=== PATIENT | male | born 1955 | race Caucasian/White ===

== ENCOUNTER 2018-09-05 08:25 | Emergency (ER) | payer MEDICAID, MEDICARE ==
[~2018-09-05] VITALS: Ht 182.9 cm; Wt 89.5 kg
[~2018-09-05 08:25] MED LIST: ONDA4TAB6 PO; PRED20TA PO
--- NOTE | 2018-09-05 10:27 | NUR ---
reported off to Silverio WEISS, taking over
[2018-09-05 11:17] VITALS: BP 142/86
== END 2018-09-05 11:34 | disposition home or self-care (01) ==
LOC: ER 08:26
DX: E11.649 Type 2 diabetes mellitus with hypoglycemia without coma (principal); J44.9 Chronic obstructive pulmonary disease, unspecified; Z79.899 Other long term (current) drug therapy
CPT/HCPCS: 82948; 99284

== ENCOUNTER 2019-04-13 09:45 | Emergency (ER) | payer MEDICARE, MEDICAID ==
[~2019-04-13] VITALS: Ht 182.9 cm; Wt 88.0 kg
[2019-04-13 10:01] VITALS: BP 166/70
--- NOTE | 2019-04-13 10:14 | NUR ---
PT STATES HE HASX HAD A COUPH
[2019-04-13] MEDS ORDERED: LIDOcaine 5% patch TP ONE (10:30)
[2019-04-13] MEDS ORDERED: HYDR-4383 PO (10:31)
== END 2019-04-13 11:45 | disposition home or self-care (01) ==
LOC: ER 09:46
DX: S22.009A Unspecified fracture of unspecified thoracic vertebra, initial encounter for closed fracture (principal); J44.9 Chronic obstructive pulmonary disease, unspecified; E11.9 Type 2 diabetes mellitus without complications; G89.29 Other chronic pain; Z79.899 Other long term (current) drug therapy; X50.1XXA Overexertion from prolonged static or awkward postures, initial encounter; Y93.89 Activity, other specified; Y92.89 Other specified places as the place of occurrence of the external cause; Y99.9 Unspecified external cause status
CPT/HCPCS: 72070; 99284

== ENCOUNTER 2019-04-19 10:36 | Emergency (ER) | payer MEDICARE, OTHER ==
[~2019-04-19] VITALS: Ht 182.9 cm; Wt 84.8 kg
[~2019-04-19 10:36] MED LIST changes: +HYDR-4383 PO
[2019-04-19] MEDS ORDERED: ipratropium/albuterol 3ml nebule NEB ONE (13:30)
[2019-04-19] MEDS ORDERED: benzonatate 100mg capsule PO ONE (13:30)
[2019-04-19] MEDS ORDERED: HYDR-3965 PO (14:29)
[2019-04-19] MEDS ORDERED: BENZ-16 PO (14:29)
[2019-04-19 15:01] VITALS: BP 183/91
== END 2019-04-19 15:03 | disposition home or self-care (01) ==
LOC: ER 10:38
DX: R05 Cough (principal); R06.00 Dyspnea, unspecified; I50.9 Heart failure, unspecified; J44.9 Chronic obstructive pulmonary disease, unspecified; E11.9 Type 2 diabetes mellitus without complications; G89.29 Other chronic pain; F17.200 Nicotine dependence, unspecified, uncomplicated; Z79.899 Other long term (current) drug therapy
CPT/HCPCS: 71046; 93005; 94640; 94760; 99283

== ENCOUNTER 2019-05-07 18:54 | Emergency (ER) | payer MEDICARE, OTHER ==
[~2019-05-07] VITALS: Ht 182.9 cm; Wt 85.0 kg
[~2019-05-07 18:54] MED LIST changes: +BENZ-16 PO; +HYDR-3965 PO
[2019-05-07] MEDS ORDERED: normal saline 1000ML IV soln IVB ONE (20:00)
[2019-05-07 20:32] LABS: BASOPHILS # (AUTO) 0.1 X10'3 (0-0.2); BASOPHILS % (AUTO) 0.6 % (0-1); EOSINOPHILS # (AUTO) 0.1 X10'3 (0-0.9); EOSINOPHILS % (AUTO) 1.2 % (0-6); HEMATOCRIT 35.1 % (42.0-52.0); HEMOGLOBIN 11.9 g/dl (14.0-17.9); LYMPHOCYTES # (AUTO) 1.2 X10'3 (1.1-4.8); MEAN CORPUSCULAR HEMOGLOBIN 29.8 PG (27.0-31.0); MEAN CORPUSCULAR VOLUME 87.8 FL (78-98); MEAN PLATELET VOLUME 8.9 FL (7.4-10.4); MONOCYTES # (AUTO) 0.6 X10'3 (0-0.9); NEUTROPHILS # (AUTO) 9.6 X10'3 (1.8-7.7); NEUTROPHILS % (AUTO) 83.2 % (42-75); PLATELET COUNT 230 X10'3 (140-440); RED CELL DISTRIBUTION WIDTH 15.6 % (11.5-14.5); WHITE BLOOD COUNT 11.6 X10'3 (4.5-11.0)
[2019-05-07 20:56] LABS: ALANINE AMINOTRANSFERASE 21 U/L (12-78); ALBUMIN 3.6 G/DL (3.4-5.0); ALBUMIN/GLOBULIN RATIO 1.1 (1.1-1.5); ALKALINE PHOSPHATASE 102 IU/L (46-116); ANION GAP 10 (8-16); ASPARTATE AMINO TRANSFERASE 24 U/L (10-37); BILIRUBIN,TOTAL 0.3 MG/DL (0.1-1.0); BLOOD UREA NITROGEN 62 MG/DL (7-18); BUN/CREATININE RATIO 17.9 (5.4-32.0); CALCIUM 8.9 MG/DL (8.5-10.1); CHLORIDE 110 MMOL/L (99-107); CREATININE 3.47 MG/DL (0.60-1.10); GLUCOSE 76 MG/DL (70-104); LIPASE 121 U/L (73-393); POTASSIUM 4.8 MMOL/L (3.5-5.1); SODIUM 144 MMOL/L (135-145); TOTAL PROTEIN 6.8 G/DL (6.4-8.2); eGFR 18 ML/MIN
--- NOTE | 2019-05-07 21:09 | NUR ---
PT GIVEN SANDWICH, JELLO, AND STRING CHEESE PER ORLIN ARROYO ORDERS
[2019-05-07] MEDS ORDERED: ipratropium/albuterol 3ml nebule NEB ONE (22:00)
[2019-05-07] MEDS ORDERED: dexamethasone sod phosphate 10mg/ml inj IV STA (22:23)
[2019-05-07 22:46] LABS: ABG BASE EXCESS -5.7 mmol/L (-2.0-3.0); ABG HCO3 19.6 mmol/L (22.0-26.0); ABG PCO2 (T) 33.8 mmHg (35.0-45.0); ABG PH (T) 7.369 (7.350-7.450); ABG PO2 (T) 61.5 mmHg (83-108); ALLEN'S TEST POSITIVE; FCOHb 1.8 % (0.5-1.5); FO2Hb 92.3 % (94-100); PATIENT TEMPERATURE 34.4; TOTAL HEMOGLOBIN 12.4 G/dl (14.0-17.9)
[2019-05-08] MEDS ORDERED: ACET-38 PO (00:16)
[2019-05-08] MEDS ORDERED: DOXY100C43 PO (00:16)
[2019-05-08 00:22] VITALS: BP 154/82
== END 2019-05-08 00:24 | disposition home or self-care (01) ==
LOC: ER 18:54
DX: E11.649 Type 2 diabetes mellitus with hypoglycemia without coma (principal); R05 Cough; J44.9 Chronic obstructive pulmonary disease, unspecified; I50.9 Heart failure, unspecified; G89.29 Other chronic pain; F17.200 Nicotine dependence, unspecified, uncomplicated; Z79.899 Other long term (current) drug therapy
CPT/HCPCS: 36415; 36600; 71045; 74176; 80053; 82803; 82948; 83605; 83690; 84484; 85018; 85025; 87040; 93005; 94640; 96361; 96374; 99285; J1100; J7030; 94760

== ENCOUNTER 2020-05-25 08:00 | Emergency (ER) | payer MEDICARE, OTHER ==
[~2020-05-25] VITALS: Ht 182.9 cm; Wt 81.8 kg
[~2020-05-25 08:00] MED LIST changes: +ALBU90AE IH; +ALEN70TA60 PO; +ASPI-1265 PO; -BENZ-16 PO; +DILT-103 PO; +FOLI0.8T22 PO; +FURO40TA4 PO; -HYDR-3965 PO; -HYDR-4383 PO; +INSU100I29 SQ; +LABE300T2 PO; +LEVO200T8 PO; -ONDA4TAB6 PO; +SEVE800T8 PO; +SIMV10TA98 PO; +tamsulosin capsule PO
[2020-05-25 08:07] VITALS: BP 155/73
[2020-05-25] MEDS ORDERED: LIDOcaine 2% 10ml TOPICAL JELLY (Urojet) TP ONE (08:20)
[2020-05-25 08:51] LABS: CLARITY,URINE CLOUDY (Clear); COLOR,URINE YELLOW (Yellow); GLUCOSE, URINE 500 mg/dl (Neg); KETONES,URINE NEGATIVE (Neg); LEUKOCYTE ESTERASE ,URINE MODERATE (Neg); NITRITES, URINE NEGATIVE (Neg); OCCULT BLOOD,URINE MODERATE (Neg); PROTEIN,URINE 100 mg/dl (Neg); UROBILINOGEN,URINE 0.2 E.U/dL (0.2-1.0)
[2020-05-25 08:52] LABS: UA COLLECTION TYPE NON-SPECIFIED
[2020-05-25 09:04] LABS: WBC,URINE TNTC /HPF (0-4)
[2020-05-25 09:05] LABS: BACTERIA,URINE 2+ /HPF (Neg)
[2020-05-25 09:06] LABS: SQUAMOUS EPITHELIAL CELL,UR NONE SEEN /LPF (FEW)
[2020-05-25] MEDS ORDERED: CEPH-585 PO (09:20)
[2020-05-25] MEDS ORDERED: cephalexin 500mg capsule PO ONE (09:20)
== END 2020-05-25 09:58 | disposition home or self-care (01) ==
LOC: ER 08:01
DX: R33.9 Retention of urine, unspecified (principal); N39.0 Urinary tract infection, site not specified; E11.22 Type 2 diabetes mellitus with diabetic chronic kidney disease; N18.6 End stage renal disease; I50.9 Heart failure, unspecified; G89.29 Other chronic pain; Z79.82 Long term (current) use of aspirin; Z79.4 Long term (current) use of insulin; Z79.899 Other long term (current) drug therapy
CPT/HCPCS: 51702; 81001; 87077; 87088; 87186; 99284

== ENCOUNTER 2020-06-25 13:06 | Emergency (ER) | payer MEDICARE, OTHER ==
[~2020-06-25] VITALS: Ht 182.9 cm; Wt 82.3 kg
[~2020-06-25 13:06] MED LIST changes: +CEPH-585 PO
[2020-06-25] MEDS ORDERED: albuterol 2.5 MG/3 ML nebule NEB ONE (13:45)
[2020-06-25] MEDS ORDERED: methylPREDNISolone sod succ 125mg/2ml vial IV ONE (13:45)
[2020-06-25 14:10] LABS: ABG BASE EXCESS 0.7 mmol/L (-2.0-2.0); ABG HCO3 24.1 mmol/L (22.0-26.0); ABG OXYGEN SATURATION 96.9 % (94-97); ABG PCO2 (T) 33.8 mmHg (35.0-48.0); ABG PO2 (T) 91.6 mmHg (75.0-100.0); ALLEN'S TEST POSITIVE; FCOHb 1.3 % (0.0-3.9); FLOW 3 L/min; FMetHb 0.2 % (0.0-1.5); FO2Hb 95.4 % (94-97); TOTAL HEMOGLOBIN 9.5 G/dl (14.0-18.0)
[2020-06-25 14:12] LABS: BASOPHILS # (AUTO) 0.1 X10'3 (0-0.2); EOSINOPHILS % (AUTO) 0 % (0-6); HEMATOCRIT 34.1 % (42.0-52.0); HEMOGLOBIN 11.2 g/dl (14.0-17.9); LYMPHOCYTES # (AUTO) 1.4 X10'3 (1.1-4.8); LYMPHOCYTES % (AUTO) 10.8 % (21-51); MEAN CORPUSCULAR HEMOGLOBIN 30.7 PG (27.0-31.0); MEAN CORPUSCULAR HGB CONC 32.9 g/dL (33.0-36.5); MEAN CORPUSCULAR VOLUME 93.4 FL (78-98); MEAN PLATELET VOLUME 7.6 FL (7.4-10.4); MONOCYTES # (AUTO) 1.2 X10'3 (0-0.9); MONOCYTES % (AUTO) 9.1 % (2-12); NEUTROPHILS # (AUTO) 10.1 X10'3 (1.8-7.7); NEUTROPHILS % (AUTO) 79.1 % (42-75); PLATELET COUNT 204 X10'3 (140-440); RED BLOOD COUNT 3.66 X10'6 (4.70-6.10); RED CELL DISTRIBUTION WIDTH 15.3 % (11.5-14.5); WHITE BLOOD COUNT 12.8 X10'3 (4.5-11.0)
[2020-06-25 14:23] LABS: ALANINE AMINOTRANSFERASE 18 U/L (12-78); ALBUMIN 2.9 G/DL (3.4-5.0); ALKALINE PHOSPHATASE 96 IU/L (46-116); ANION GAP 4 (8-16); ASPARTATE AMINO TRANSFERASE 23 U/L (10-37); BILIRUBIN,TOTAL 0.5 MG/DL (0.1-1.0); BLOOD UREA NITROGEN 19 MG/DL (7-18); BUN/CREATININE RATIO 6.1 (5.4-32.0); CALCIUM 7.7 MG/DL (8.5-10.1); CHLORIDE 96 MMOL/L (99-107); CREATININE 3.11 MG/DL (0.60-1.10); GLUCOSE 350 MG/DL (70-104); POTASSIUM 4.3 MMOL/L (3.5-5.1); SODIUM 132 MMOL/L (135-145); TOTAL CARBON DIOXIDE 31.6 MMOL/L (24-32); TOTAL PROTEIN 5.9 G/DL (6.4-8.2); eGFR 20 ML/MIN
[2020-06-25 14:33] VITALS: BP 184/84
--- NOTE | 2020-06-25 14:33 | NUR ---
SATING AT 90% ON ra PLACED ON 2L NC 94%
== END 2020-06-25 17:16 | disposition home or self-care (01) ==
LOC: ER 13:06
DX: J44.1 Chronic obstructive pulmonary disease with (acute) exacerbation (principal); R06.02 Shortness of breath; I50.9 Heart failure, unspecified; E11.9 Type 2 diabetes mellitus without complications; G89.29 Other chronic pain; Z79.82 Long term (current) use of aspirin; Z79.2 Long term (current) use of antibiotics; Z79.4 Long term (current) use of insulin; Z79.899 Other long term (current) drug therapy
CPT/HCPCS: 36415; 36600; 71045; 80053; 82803; 82948; 83880; 84484; 85018; 85025; 85610; 93005; 94640; 96374; 99285; J2930; 94760